=== PATIENT | male | born 1955 | race Caucasian/White ===

== ENCOUNTER 2024-05-22 08:22 | Observation (INO) ==
[2024-05-22] MEDS: NOZIN NASAL SANITIZER TP ONE (08:50)
[2024-05-22] MEDS: NS 1,000 ML IV 1,000 ML ONE (08:52)
[2024-05-22 09:08] VITALS: BMI 35.9
[2024-05-22] MEDS: D5 LR 1,000 ML 1,000 ML IV ONE (09:32)
[2024-05-22] MEDS: VERSED ONE (10:06)
[2024-05-22] MEDS: FENTANYL VIAL INJ 100 mcg ONE (10:06)
[2024-05-22] MEDS: DIPRIVAN VIAL 20 ML ONE (10:07)
[2024-05-22] MEDS: XYLOCAINE 2 % (PLAIN) ONE (10:08)
[2024-05-22] MEDS: QUELICIN (OR ANECTINE) ONE (10:08)
[2024-05-22] MEDS: ZEMURON 100 MG VIAL ONE (10:08)
[2024-05-22] MEDS: PRECEDEX INJ VIAL ONE (10:10)
[2024-05-22] MEDS: ZOFRAN INJ 4 MG VIAL ONE (10:14)
[2024-05-22] MEDS: PEPCID 20 MG VIAL ONE (10:14)
[2024-05-22] MEDS: PEPCID 20 MG VIAL IVP PRN (10:15)
[2024-05-22] MEDS: ZOFRAN INJ 4 MG VIAL IVP PRN (10:15)
[2024-05-22] MEDS: VERSED IVP PRN (10:15)
[2024-05-22] MEDS: CLEOCIN 600 MG IV PREMIX 600 MG/50 ML BAG IV ONE (10:25)
[2024-05-22] MEDS ORDERED: KETAMINE HCL ONE (10:33)
[2024-05-22] MEDS ORDERED: SUPRANE IN ONE (10:33)
[2024-05-22] MEDS: D5 LR IV PRN (10:33)
[2024-05-22] MEDS: CLEOCIN 600 MG IV PREMIX 600 MG/50 ML BAG IV PRN (10:33)
[2024-05-22] MEDS: FENTANYL VIAL INJ 100 mcg IVP PRN (10:38)
[2024-05-22] MEDS: DIPRIVAN VIAL 150 ML IVP PRN (10:39)
[2024-05-22] MEDS ORDERED: XYLOCAINE 2 % (PLAIN) PRN (10:39)
[2024-05-22] MEDS: QUELICIN (OR ANECTINE) IVP PRN (10:39)
[2024-05-22] MEDS: BETADINE SOLN ONE (10:40)
[2024-05-22] MEDS: MARCAINE 0.25% INJ ONE (10:40)
[2024-05-22] MEDS: EPHEDRINE SULFATE INJ ONE (10:53)
[2024-05-22] MEDS: VASOSTRICT INJ 20 UNITS VIAL ONE (10:59)
[2024-05-22] MEDS: EPHEDRINE SULFATE INJ IVP PRN (11:01)
[2024-05-22] MEDS: KETAMINE HCL IV PRN (11:25)
[2024-05-22] MEDS ORDERED: NORVASC TAB 10 MG PRN (11:30)
[2024-05-22] MEDS: ZEMURON 100 MG VIAL IVP PRN (12:37)
[2024-05-22] MEDS: OFIRMEV IV 1000 MG VIAL 1,000 MG/100 ML VIAL IV ONE (12:40)
[2024-05-22] MEDS: OFIRMEV IV 1000 MG VIAL 1,000 MG/100 ML VIAL IV PRN (12:41)
[2024-05-22] MEDS: BRIDION ONE (12:54)
[2024-05-22] MEDS ORDERED: ZOFRAN INJ 4 MG VIAL IVP PRN ×2 (12:56→13:27)
[2024-05-22] MEDS ORDERED: DILAUDID INJ IVP PRN (12:56)
[2024-05-22] MEDS ORDERED: BENADRYL INJ 50 MG VIAL IVP PRN (12:56)
[2024-05-22] MEDS ORDERED: BARHEMSYS INJ IVP PRN (12:56)
[2024-05-22] MEDS ORDERED: REGLAN INJ 10 MG VIAL IVP PRN (12:56)
[2024-05-22] MEDS: PRECEDEX INJ VIAL IVP PRN (13:10)
[2024-05-22] MEDS: BRIDION IVP PRN (13:17)
[2024-05-22] MEDS ORDERED: TYLENOL 325 MG TAB PO PRN (13:27)
[2024-05-22] MEDS: NS 1,000 ML IV 1,000 ML IV SCH (15:00)
[2024-05-22] MEDS: DILAUDID INJ IVP PRN (18:29)
[2024-05-22] MEDS: PERCOCET TAB 5/325 MG PO PRN (19:32)
[2024-05-22] MEDS: COLACE CAP 100 MG PO SCH (20:18)
[2024-05-23] MEDS ORDERED: NovoLIN R (or HumuLIN R) SUBCUT PRN (05:10)
[2024-05-23 06:20] LABS: BLOOD UREA NITROGEN 31 mg/dL (7-18); CARBON DIOXIDE 28.1 mmol/L (21-32); CHLORIDE 100 mmol/L (98-107); CREATININE 1.92 mg/dL (0.70-1.30); GLUCOSE 62 mg/dL (65-99); POTASSIUM 4.9 mmol/L (3.5-5.1); SODIUM 134 mmol/L (136-145); eGFR NON BLACK RACES 37 (>60)
[2024-05-23] MEDS: LOVENOX INJ 40 MG SYR SC SCH (08:41)
--- NOTE | 2024-05-23 10:50 | NOTE.SOAP ---
Soap Note Note for Day of Date of Exam: 05/23/24 Subjective Data Subjective Data: Patient is POD#1 Ex Fix Removal and hindfoot fusion, left. He denies any nausea, vomiting, fevers, chills, shortness of breath, or chest pain. Denies any profuse sweating. Had pain through leg last night but this am better. Objective Data Objective Data: Left Lower Extremity Exam: Dressing and splint were taken down. Incisions examined. All incisions appeared well. No hematoma. Redressed wwith 4x4s, Webroll, ABD, BRIANNE and reapplied splint. No signs or symptoms concerning for DVT or PE. Assessment Assessment: 69 year old DM M POD#1 Ex Fix Removal with tibiocalcaneal arthrodesis, left foot due to charcot Plan Plan: - Strict NWB to LLE. Discussed this with patient and he reiterated to me that he thought he could put weight on it. I told him no weight. He said he will try his best as he has trouble doing transfers. I reiterated no weight bearing to him. - Rx in chart for Bedside commode placed in chart. - Rx for Pain medication, Lovenox, and Zofran in chart. - Patient appears medically stable. Dr. Guzman was in the room with me during this examination. - Okay for discharge from our standpoint.
[2024-05-23 11:50] VITALS: BP 122/56; PULSE 92; RESP 17; TEMP 99; O2SAT 100
[2024-05-23] MEDS ORDERED: SNACK - Diabetic Appropriate PO SCH (20:00)
== END 2024-05-23 11:55 | disposition home health service (06) ==
LOC: MED/SURG 08:22 → SURG1 08:22
PROVIDERS: ADMIT Obstetrics & Gynecology Obstetrics; ATTEND Obstetrics & Gynecology Obstetrics
DX: E11.42 Type 2 diabetes mellitus with diabetic polyneuropathy; G89.18 Other acute postprocedural pain; M21.6X2 Other acquired deformities of left foot; E87.1 Hypo-osmolality and hyponatremia; T84.84XA Pain due to internal orthopedic prosthetic devices, implants and grafts, initial encounter; M86.372 Chronic multifocal osteomyelitis, left ankle and foot; Z59.86 Financial insecurity; I10 Essential (primary) hypertension; M12.572 Traumatic arthropathy, left ankle and foot

== ENCOUNTER 2024-11-27 15:30 | Observation (INO) ==
[2024-11-27] MEDS: REGLAN INJ 10 MG VIAL ONE (11:55)
[2024-11-27] MEDS: DECADRON INJ ONE (11:55)
[2024-11-27] MEDS: ZOFRAN INJ 4 MG VIAL ONE (11:55)
--- NOTE | 2024-11-27 11:55 | EKG ---
Test Reason : pre op Blood Pressure : */* mmHG Vent. Rate : 69 BPM Atrial Rate : 69 BPM P-R Int : 190 ms QRS Dur : 148 ms QT Int : 450 ms P-R-T Axes : 53 -68 18 degrees QTc Int : 482 ms Normal sinus rhythm Left axis deviation Right bundle branch block Abnormal ECG When compared with ECG of 23-APR-2024 16:48, No significant change was found Confirmed by Ian House MD ([id number]) on 11/27/2024 12:53:57 PM Referred By: Confirmed By: Ian House MD
[2024-11-27] MEDS: OFIRMEV IV 1000 MG VIAL 1,000 MG/100 ML VIAL IV ONE (12:00)
[2024-11-27] MEDS: DIPRIVAN VIAL 20 ML ONE (12:00)
[2024-11-27] MEDS: PEPCID 20 MG VIAL ONE (12:01)
[2024-11-27] MEDS: VERSED ONE (12:02)
[2024-11-27] MEDS: FENTANYL VIAL INJ 100 mcg ONE (12:03)
[2024-11-27] MEDS: BENADRYL INJ 50 MG VIAL ONE (12:12)
[2024-11-27 12:28] VITALS: BMI 35.6
[2024-11-27] MEDS: D5 1/2 NS 1,000 ML 1,000 ML IV ONE (12:29)
[2024-11-27] MEDS: CLEOCIN 600 MG IV PREMIX 0 MG/0 ML BAG IV ONE (12:31)
[2024-11-27] MEDS: ANCEF VIAL 1 GRAM ONE (12:34)
[2024-11-27] MEDS: NS 100 ML IV 100 ML ONE (12:34)
[2024-11-27] MEDS: BETADINE SOLN ONE (12:35)
[2024-11-27] MEDS: MARCAINE 0.25% INJ ONE (13:04)
[2024-11-27] MEDS: TOBRAMYCIN SULFATE ONE (13:04)
[2024-11-27] MEDS: VANCOMYCIN HCL ONE (13:04)
[2024-11-27] MEDS: EPHEDRINE SULFATE INJ ONE (13:06)
--- NOTE | 2024-11-27 13:08 | RAD ---
EXAM: CHEST, 1 VIEW HISTORY: PRE OP HARDWARE REMOVAL LT FOOT; COMPARISON: 05/24/2024 TECHNIQUE: AP br.br.br.br AP technique. No focal consolidation. No large pleural effusion or visible pneumothorax. IMPRESSION: No acute cardiopulmonary findings. THIS IS AN ELECTRONICALLY VERIFIED FINAL REPORT 11/27/2024 1:00 PM - Electronically signed by Marco Woodward MD
[~2024-11-27 15:30] MED LIST: BARHEMSYS INJ IVP PRN; BENADRYL INJ 50 MG VIAL IVP PRN; PRECEDEX INJ VIAL ONE; ULTANE GAS IN ONE; XYLOCAINE 2 % (PLAIN) ONE; ZOFRAN INJ 4 MG VIAL IVP PRN
[2024-11-27] MEDS: DILAUDID INJ IVP PRN ×2 (16:12→16:50)
[2024-11-27] MEDS ORDERED: DILAUDID INJ ONE (17:00)
[2024-11-27] MEDS: PERCOCET TAB 5/325 MG PO PRN (18:08)
[2024-11-27] MEDS: VASOSTRICT INJ 20 UNITS VIAL ONE (18:30)
[2024-11-27] MEDS: HYDROGEN PEROXIDE 3% ONE (18:31)
[2024-11-27] MEDS: DILAUDID INJ ONE (18:31)
[2024-11-27] MEDS: BRIDION ONE (18:31)
[2024-11-27] MEDS ORDERED: NovoLIN R (or HumuLIN R) SUBCUT PRN (19:10)
[2024-11-27] MEDS: SNACK - Diabetic Appropriate PO SCH (20:10)
[2024-11-27] MEDS: COLACE CAP 100 MG PO SCH (20:11)
[2024-11-28 05:53] LABS: COR NA(FOR HYPERGLY) 137 mmol/L (136-145); CREATININE 1.41 mg/dL (0.70-1.30); eGFR NON BLACK RACES 53 (>60)
[2024-11-28] MEDS: REQUIP PO SCH (05:53)
--- NOTE | 2024-11-28 08:26 | RAD ---
EXAM: LOWER LEG, TIB/FIB LEFT HISTORY: post op ex-fix; COMPARISON: Left foot 06/24/2022 FINDINGS: External fixation hardware is noted. A total knee prosthesis is also present. Lucency in the mid diaphysis of the tibia is likely an osteotomy. Ankle is not well seen but I believe there has been surgical resection of the lateral malleolus. Periosteal reaction is noted along the medial distal tibia and medial malleolus but I do not see the joint space at the ankle. In general there is anatomic alignment. IMPRESSION: 1. Anatomic alignment THIS IS AN ELECTRONICALLY VERIFIED FINAL REPORT 11/28/2024 8:23 AM - Electronically signed by Sly Cha MD
[2024-11-28] MEDS ORDERED: NORCO 10/325 TAB PO PRN (09:24)
[2024-11-28] MEDS ORDERED: KLOR-CON 10 MEQ TAB PO SCH (09:30)
[2024-11-28] MEDS ORDERED: PATIENT'S HOME MEDICATION (Aspirin 81 mg Capsule) PO SCH (09:30)
--- NOTE | 2024-11-28 09:33 | NOTE.SOAP ---
Soap Note Note for Day of Date of Exam: 11/28/24 Subjective Data Subjective Data: Patient was seen and examined at bedside. Patient did admit to significant pain yesterday but states that he is much better today. Patient states his pain was to the anterior leg right over the osteotomy site of his tibia. Patient denies any shortness of breath or calf pain at this time. patient states he has been taking his own home medication as he has a specific regimen he follows. Objective Data Objective Data: External fixator noted to be intact and in rectus position to the LLE. Dressing was clean with no strikethrough present. No tenderness noted to the calf or the pin sites today. LLE was noted to be elevated at the time of the evaluation, swelling was minimal. Patient at baseline does not have ROM to digits but was able to show ROM to the left hallux. Patient does have neuropathy to the LLE. Assessment Assessment: 1. 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 Osteomyelitis, LLE 3. 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 patient refuses a facility and wants to go home - Will evaluate patients swelling and pain tomorrow Please contact me with any questions Dr. Johana Newsome
[2024-11-28] MEDS ORDERED: PEPCID TAB 20 MG PO SCH (10:00)
[2024-11-28] MEDS ORDERED: AMARYL TAB 4 MG PO SCH (10:00)
[2024-11-28] MEDS ORDERED: COREG TAB 25 MG PO SCH (10:00)
[2024-11-28] MEDS ORDERED: HYDROCHLOROTHIAZIDE 25 MG TAB PO SCH (10:00)
[2024-11-28] MEDS ORDERED: DIOVAN TAB 160 MG PO SCH (10:00)
[2024-11-28] MEDS ORDERED: GLUCOPHAGE XR 24-HR PO SCH (10:00)
[2024-11-28] MEDS ORDERED: CLARITIN PO SCH (10:00)
[2024-11-28] MEDS ORDERED: REQUIP PO SCH (10:00)
[2024-11-28] MEDS ORDERED: ZYLOPRIM PO SCH (10:00)
[2024-11-28] MEDS ORDERED: NEURONTIN CAP 400 MG PO SCH (10:00)
[2024-11-28] MEDS: VALIUM PO SCH (10:24)
[2024-11-28] MEDS: KLOR-CON 10 MEQ TAB PO SCH (10:35)
[2024-11-28] MEDS: GLUCOPHAGE PO SCH (10:35)
[2024-11-28] MEDS: HYDROCHLOROTHIAZIDE 25 MG TAB PO SCH (10:35)
[2024-11-28] MEDS: PEPCID TAB 20 MG PO SCH (10:36)
[2024-11-28] MEDS: ZYLOPRIM PO SCH (10:36)
[2024-11-28] MEDS: AMARYL TAB 4 MG PO SCH (10:36)
[2024-11-28] MEDS: LOVENOX INJ 40 MG SYR SC SCH (10:37)
[2024-11-28] MEDS: ASPIRIN EC 81 MG PO SCH (10:37)
[2024-11-28] MEDS: CLARITIN PO SCH (10:37)
[2024-11-28] MEDS: GLUCOPHAGE ONE ×2 (10:58→21:37)
[2024-11-28] MEDS: DIOVAN TAB 160 MG PO SCH (11:03)
[2024-11-28] MEDS: NEURONTIN CAP 400 MG PO SCH ×2 (11:03→15:31)
[2024-11-28] MEDS: COREG TAB 25 MG PO SCH (11:03)
[2024-11-28] MEDS: NORCO 5/325 MG TAB PO SCH (12:56)
[2024-11-28] MEDS ORDERED: SNACK - Diabetic Appropriate PO SCH (20:00)
[2024-11-28] MEDS: AMBIEN PO SCH (20:50)
[2024-11-28] MEDS: SINGULAIR TAB 10 MG PO SCH (20:50)
[2024-11-28] MEDS: CARDURA PO SCH (20:50)
[2024-11-28] MEDS: ZANAFLEX PO SCH (20:50)
[2024-11-28] MEDS ORDERED: SINGULAIR TAB 10 MG PO SCH (21:00)
[2024-11-28] MEDS ORDERED: PATIENT'S HOME MEDICATION (Doxazosin 4 mg tablet) PO SCH (21:00)
[2024-11-28] MEDS ORDERED: EXT PO SCH (21:00)
[2024-11-28] MEDS ORDERED: ZOLPIDEM 12.5 MG PO SCH (21:00)
[2024-11-28] MEDS: NS 1,000 ML IV 1,000 ML ONE (21:35)
[2024-11-29 06:08] LABS: MEAN PLATELET VOLUME 8.3 fL (7.4-11.0); RED CELL DISTRIBUTION WIDTH 17.1 % (11.6-16.5)
[2024-11-29 08:20] VITALS: BP 139/80; PULSE 60; TEMP 97.4; O2SAT 96
--- NOTE | 2024-11-29 08:47 | NOTE.SOAP ---
Soap Note Note for Day of Date of Exam: 11/29/24 Subjective Data Subjective Data: Patient was seen and examined at bedside. Mr. Sprague states he is in no significant pain and is noted to have his swelling under control. Patient denies any calf pain and no shortness of breath at this time. Patient is requesting to go home this morning. Objective Data Objective Data: Dressing was noted to have strikethrough to the bottom dressing portion of the lateral foot. This was removed and changed. Sutures were noted to be intact with no signs of drainage, no gapping and no ischemic changes. External fixator is noted to be intact to the LLE and is in a rectus position. No pin sites appeared to be draining and no tenderness to palpation was noted. No calf tenderness was noted on squeeze compression or under the knee. Assessment Assessment: 1. 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 Quiles. He was also told he could change out the pin site foam pads if drainage does occur, these are in his room. Please contact me with any questions Dr. Johana Newsome
[2024-11-29] MEDS: GLUCOPHAGE ONE (09:29)
[2024-11-29 10:37] VITALS: RESP 18
== END 2024-11-29 10:40 | disposition home or self-care (01) ==
LOC: MED/SURG → EDSTATUS 15:30
PROVIDERS: ADMIT Obstetrics & Gynecology Obstetrics; ATTEND Obstetrics & Gynecology Obstetrics
PROC: APEXFIX (2024-11-27 15:45)
PROC: HARDREM (ICD-10-PCS; 2024-11-27 15:45)
DX: M14.672 Charcot's joint, left ankle and foot; F41.8 Other specified anxiety disorders; D64.9 Anemia, unspecified; I10 Essential (primary) hypertension; Z59.86 Financial insecurity; Z91.119 Patient's noncompliance with dietary regimen due to unspecified reason; Z01.810 Encounter for preprocedural cardiovascular examination; E11.42 Type 2 diabetes mellitus with diabetic polyneuropathy; M86.162 Other acute osteomyelitis, left tibia and fibula; M86.372 Chronic multifocal osteomyelitis, left ankle and foot; M86.172 Other acute osteomyelitis, left ankle and foot; E11.621 Type 2 diabetes mellitus with foot ulcer; Z91.148 Patient's other noncompliance with medication regimen for other reason; Z91.81 History of falling; Z96.653 Presence of artificial knee joint, bilateral; G89.18 Other acute postprocedural pain; R26.89 Other abnormalities of gait and mobility; E87.1 Hypo-osmolality and hyponatremia; R94.31 Abnormal electrocardiogram [ECG] [EKG]